=== PATIENT | male | born 1975 | race Caucasian/White ===

== ENCOUNTER 2021-03-11 08:57 | Emergency (ER) | payer MEDICAID, OTHER ==
[2021-03-11 09:42] LABS: BASOPHILS # (AUTO) 0.1 10^3/uL (0.0-0.1); EOSINOPHILS # (AUTO) 0.1 10^3/uL (0.0-0.7); EOSINOPHILS % (AUTO) 1.4 %; HCT - HEMATOCRIT 47.5 % (42.0-52.0); HGB - HEMOGLOBIN 15.8 g/dL (14.0-18.0); LYMPHOCYTES # (AUTO) 2.2 10^3/uL (1.5-3.5); LYMPHOCYTES % (AUTO) 23.6 %; MEAN CORPUSCULAR HGB CONC 33.3 g/dL (32.0-36.0); MEAN CORPUSCULAR VOLUME 87.2 fL (80.0-94.0); MEAN PLATELET VOLUME 11.8 fL (7.4-11.4); MONOCYTES # (AUTO) 0.5 10^3/uL (0.0-1.0); MONOCYTES % (AUTO) 5.8 %; NEUTROPHILS # (AUTO) 6.3 10^3/uL (1.5-6.6); PLT - PLATELET COUNT 361 10^3/uL (130-450); RED BLOOD COUNT 5.45 10^6/uL (4.70-6.10); RED CELL DISTRIBUTION WIDTH 14.2 % (12.0-15.0); WHITE BLOOD COUNT 9.3 x10^3/uL (4.8-10.8)
[2021-03-11 09:47] LABS: BILIRUBIN,URINE NEGATIVE (NEGATIVE); GLUCOSE, URINE (UA) NEGATIVE (NEGATIVE); KETONES,URINE (UA) 40 mg/dL (NEGATIVE); LEUKOCYTE ESTERASE, URINE NEGATIVE (NEGATIVE); NITRITE,URINE NEGATIVE (NEGATIVE); OCCULT BLOOD,URINE NEGATIVE (NEGATIVE); PH,URINE 7.5 PH (5.0-7.5); PROTEIN,URINE NEGATIVE (NEGATIVE); UROBILINOGEN,URINE 0.2 (NORMAL) E.U./dL (NORMAL)
[2021-03-11 09:48] LABS: CLARITY,URINE CLEAR (CLEAR)
[2021-03-11 09:56] LABS: ALBUMIN 4.2 g/dL (3.2-5.5); ALBUMIN/GLOBULIN RATIO 1.2 (1.0-2.2); BILIRUBIN,TOTAL 1.1 mg/dL (0.2-1.0); CREATININE 0.8 mg/dL (0.6-1.2); POTASSIUM 3.1 mmol/L (3.5-5.0); TOTAL PROTEIN 7.7 g/dL (6.7-8.2)
--- NOTE | 2021-03-11 10:18 | ED Physician Documentation ---
PD HPI ABD PAIN - Stated complaint Stated Complaint: LUMP IN ABDOMEN - Chief complaint Chief Complaint: Abd Pain - History obtained from History obtained from: Patient - History of Present Illness Timing - onset: Yesterday Timing - duration: Days (Patient states he had felt fullness of his stomach with some bloating after eating a lot for Thanksgiving and the next day. He had an episode of several emesis with diarrhea 2 days ago. No subsequent vomiting. Crampy abdominal pain at the time which resolved. Subsequently noted a lump in abd.) Timing - details: Abrupt onset Quality: No: Aching, Sharp Location: Other (he did have general abd cramping and bloating for a day, that has since resolved.) Associated symptoms: Nausea, Vomiting (for just a day) Similar symptoms before: Has not had sx before (The lumpPancreatic tumor 6 years ago that was found incidental to a CT for appendicitis. The lump he is feeling now concerned him for recurrent tumor.) Recently seen: Clinic (He went to walk-in clinic today for concern certain of the lump feeling. He does not have any continued pain nausea or vomiting. Walk-in referred him here for further evaluation and possible imaging.) Review of Systems Constitutional: denies: Fever, Chills Nose: denies: Rhinorrhea / runny nose, Congestion Throat: denies: Sore throat Respiratory: denies: Cough GI: denies: Constipation, Hematemesis, Bloody / black stool Skin: denies: Rash, Lesions PD PAST MEDICAL HISTORY - Past Medical History Cardiovascular: Hypertension Respiratory: Sleep apnea - Past Surgical History Past Surgical History: Yes General: Appendectomy - Present Medications Home Medications: Ambulatory Orders Medication Instructions Recorded Confirmed Benazepril HCl 20 mg PO DAILY 02/22/15 02/22/15 - Allergies Allergies/Adverse Reactions: Allergies Allergy/AdvReac Type Severity Reaction Status Date / Time erythromycin base Allergy Unknown Unknown Verified 03/11/21 09:16 azithromycin [From Zithromax] Allergy Anaphylaxis Verified 03/11/21 09:16 amoxicillin AdvReac Rash Verified 03/11/21 09:16 erythromycin lactobionate * AdvReac Nausea Verified 03/11/21 09:16 [From Erythrocin] - Social History Does the pt smoke?: No Smoking Status: Never smoker Does the pt drink ETOH?: Yes Does the pt have substance abuse?: No - Immunizations Immunizations are current?: Yes PD ED PE NORMAL - Vitals Vital signs reviewed: Yes - General General: Alert and oriented X 3, No acute distress, Well developed/nourished - Cardiac Cardiac: RRR, No murmur - Respiratory Respiratory: Clear bilaterally - Abdomen Abdomen: Normal bowel sounds, Soft, Non distended, No organomegaly, Other (Localized approximately 3 cm rounded density in the deep soft tissue in the upper abdomen right of center. Nontender. Likely hernia.) - Male Male : Deferred - Rectal Rectal: Deferred - Back Back: No CVA TTP - Derm Derm: Normal color, Warm and dry Results - Vitals Vitals: Vital Signs - 24 hr 03/11/21 03/11/21 03/11/21 09:08 11:16 12:54 Temperature 36.6 C Heart Rate 74 88 80 Respiratory 16 17 18 Rate Blood Pressure 185/100 H 190/103 H 190/100 H O2 Saturation 97 99 99 Oxygen O2 Source Room air - Labs Labs: Laboratory Tests 03/11/21 03/11/21 03/11/21 09:23 09:36 09:36 WBC 9.3 RBC 5.45 Hgb 15.8 Hct 47.5 MCV 87.2 MCH 29.0 MCHC 33.3 RDW 14.2 Plt Count 361 MPV 11.8 H Neut # (Auto) 6.3 Lymph # (Auto) 2.2 [place] # (Auto) 0.5 Eos # (Auto) 0.1 Baso # (Auto) 0.1 Absolute Nucleated RBC 0.00 Nucleated RBC % 0.0 Sodium 138 Potassium 3.1 L Chloride 100 L Carbon Dioxide 26 Anion Gap 12.0 BUN 8 Creatinine 0.8 Estimated GFR (MDRD) 104 Glucose 184 H Calcium 9.0 Total Bilirubin 1.1 H AST 22 ALT 20 Alkaline Phosphatase 83 Total Protein 7.7 Albumin 4.2 Globulin 3.5 Albumin/Globulin Ratio 1.2 Lipase 20 L Urine Color YELLOW Urine Clarity CLEAR Urine pH 7.5 Ur Specific [place] 1.015 Urine Protein NEGATIVE Urine Glucose (UA) NEGATIVE Urine Ketones 40 H Urine Occult Blood NEGATIVE Urine Nitrite NEGATIVE Urine Bilirubin NEGATIVE Urine Urobilinogen 0.2 (NORMAL) Ur Leukocyte Esterase NEGATIVE Ur Microscopic Review NOT INDICATED Urine Culture Comments NOT INDICATED - Rads (name of study) abd/pelvic CT Radiology: Prelim report reviewed (Abdominal wall hernia fat-containing without any signs of bowel obstruction or strangulation. Located in the area of the lump. No other acute process.), See rad report PD MEDICAL DECISION MAKING - ED course Complexity details: reviewed results (CT abdomen confirmed the clinically likely diagnosis of a incisional hernia. No signs of incarceration or strangulation. I did not really attempt reduction as it was not bothering him. No signs of pancreatic or other organ tumors.), considered differential, d/w patient Departure - Departure Disposition: Home, Self Care Clinical Impression: Abdominal wall lump Incisional hernia Qualifiers: Obstruction and gangrene presence: without obstruction or gangrene Qualified Co de(s): K43.2 - Incisional hernia without obstruction or gangrene Condition: Stable Record reviewed to determine appropriate education?: Yes Follow-Up: ADY RICO MD [Primary Care Provider] - Kj Winston MD [Provider Admit Priv/Credential] - Comments: The radiology report confirms no signs of masses or other abnormality in the abdominal cavity and in particular the pancreas and liver area. They did see some small possible gallstones in the gallbladder but no signs of wall thickening or inflammation. The lump palpable in the upper abdomen is a small fat-containing hernia around the incision site. This does not need particular treatment unless its tender or causes nausea or episodes of vomiting. Otherwise Tylenol if it is slightly uncomfortable. You can follow-up with surgery to discuss it if it seems bothersome otherwise no acute treatment is needed. Discharge Date/Time: 03/11/21 12:54
[2021-03-11] MEDS ORDERED: IOVERSOL 320 100 ML VIAL IVP ONE ×2 (11:12→13:08)
--- NOTE | 2021-03-11 12:10 | CT Report ---
PROCEDURE: Abdomen/Pelvis W INDICATIONS: upper abd lump and tender CONTRAST: IV CONTRAST: Optiray 320 ml: 100 PO CONTRAST: *NO PO CONTRAST TECHNIQUE: After the administration of intravenous contrast, 5 mm thick sections acquired from the diaphragms to the symphysis. 5 mm thick coronal and sagittal reformats were acquired. For radiation dose reducti on, the following was used: automated exposure control, adjustment of mA and/or kV according to milton ent size. COMPARISON: None available. FINDINGS: Image quality: Excellent. ABDOMEN: Lung bases: There is a right lower lobe nodule measuring up to 0.4 cm on series 4 image 2. A small ca lcified granuloma is also demonstrated in the left lower lobe. There is mild dependent atelectasis bi laterally. Heart size is normal. Solid organs: There is diffuse hypoattenuation of the liver consistent with fatty infiltration. There are a few small dependent calcified gallstones in the region of the gallbladder neck without wall th ickening or pericholecystic fluid. Biliary system is non dilated. There are postsurgical changes cons istent with prior distal pancreatectomy with surgical clips in the distal pancreatic body. No peripan creatic fat stranding or fluid collections. No pancreatic duct dilatation. The spleen is surgically a bsent. There is a small subdiaphragmatic splenule measuring up to 2.4 x 1.1 cm. No adrenal nodules. K idneys demonstrate no hydronephrosis. Peritoneum and bowel: Small bowel loops demonstrate normal wall thickness and caliber. The appendix i s not discretely identified and likely surgically absent. There are surgical clips adjacent to the ce cum. The colon is nondistended throughout is course limiting evaluation but there is suggestion of mi ld wall thickening. No free fluid or air. Nodes and vessels: No retroperitoneal or mesenteric adenopathy by size criteria. Aorta and inferior vena cava are normal in size. Miscellaneous: There is a small right paracentral fat-containing ventral abdominal hernia within the upper abdomen. The fascial defect measures approximately 0.7 x 0.8 cm in dimension. This corresponds to the area of patient's palpable abnormality as noted by a cutaneous marker. PELVIS: Genitourinary: Bladder wall thickness is normal. Miscellaneous: No inguinal hernias or adenopathy. Bones: No suspicious bony lesions. No vertebral body compression fractures. IMPRESSION: 1. Small right paracentral fat-containing ventral abdominal hernia demonstrated in the area of palpab le abnormality. No evidence of bowel herniation. 2. Postsurgical changes demonstrated status post distal pancreatectomy and splenectomy. No peripancre atic fat stranding, free fluid, or loculated fluid collections in the surgical bed. No pancreatic kathy t dilatation. 3. Small subdiaphragmatic splenule in the left upper quadrant. 4. Nonspecific right lower lobe pulmonary nodule measuring up to 0.4 cm. Recommend comparison with pr ior outside studies if available. If outside studies are not available, recommend follow-up chest CT in 6 months to demonstrate stability. Reviewed by: Harjinder Murcia MD on 03/11/2021 12:08 PM PST Approved by: Harjinder Murcia MD on 03/11/2021 12:08 PM PST Station ID: [id number]
[2021-03-11 12:56] VITALS: BP 190/100
== END 2021-03-11 12:54 | disposition home or self-care (01) ==
LOC: ED 08:57
DX: K43.2 Incisional hernia without obstruction or gangrene (principal); R22.2 Localized swelling, mass and lump, trunk
CPT/HCPCS: 36415; 74177; 80053; 81003; 83690; 85025; 99282; 99284; Q9967; 81001; 87086

== ENCOUNTER 2022-07-03 13:07 | Outpatient (CLI) | payer OTHER ==
--- NOTE | 2022-07-03 15:31 | XRAY Report ---
PROCEDURE: Knee 2 View RT INDICATIONS: SPRAIN OF UNSPECIFIED SITE OF R KNEE TECHNIQUE: 2 views of the right knee were acquired. COMPARISON: None. FINDINGS: Bones: No acute fractures or dislocations. No suspicious bony lesions. There is nondisplaced tear ing of the medial and lateral femorotibial compartments with formation of small marginal osteophytes. Soft tissues: Small joint effusion. No suspicious soft tissue calcifications. IMPRESSION: 1.No acute osseous abnormality. If symptoms persist or there is continued clinical concern, further e valuation with MRI or CT may be helpful. 2.Small joint effusion. 3.Mild osteoarthrosis. Reviewed by: Harpreet Hackett MD on 07/03/2022 3:30 PM PDT Approved by: Harpreet Hackett MD on 07/03/2022 3:30 PM PDT Station ID: [id number]
== END 2022-07-03 13:08 | disposition home or self-care (01) ==
LOC: DI 13:07
PROVIDERS: ATTEND Family Medicine
DX: S83.91XA Sprain of unspecified site of right knee, initial encounter (principal); M25.461 Effusion, right knee; M17.11 Unilateral primary osteoarthritis, right knee

== ENCOUNTER → 2022-07-21 14:30 | Outpatient (CLI) | payer OTHER ==
--- NOTE | 2022-07-21 11:39 | XRAY Report ---
PROCEDURE: Knee 3 View RT INDICATIONS: RIGHT KNEE PAIN, BILAT AP, RIGHT PA TUNNEL, RT SUNRISE ONLY TECHNIQUE: 3 views of the right knee and one view of the left knee were acquired. COMPARISON: Right knee radiograph 07/03/2022 FINDINGS: Bones: No acute fractures or dislocations. No suspicious bony lesions. Mild narrowing of the medial femorotibial compartment joint spaces bilaterally with small marginal osteophytes. Lateral compartme nt joint spaces are maintained, but there is mild early marginal spurring. There is moderate narrowin g of the right anterior compartment joint space with marginal osteophytes. Soft tissues: No suspicious soft tissue calcifications or masses. IMPRESSION: Bilateral osteoarthrosis is most notable and moderate at the patellofemoral compartment. No acute oss eous abnormality. If symptoms persist or there is continued clinical concern, further evaluation with MRI or CT may be helpful. Reviewed by: Harpreet Hackett MD on 07/21/2022 11:37 AM PDT Approved by: Harpreet Hackett MD on 07/21/2022 11:37 AM PDT Station ID: [id number]
== END | disposition home or self-care (01) ==
LOC: DI.WOS 14:30
PROVIDERS: ATTEND Physician Assistant Surgical
DX: S83.91XD Sprain of unspecified site of right knee, subsequent encounter (principal); M17.11 Unilateral primary osteoarthritis, right knee

== ENCOUNTER 2022-08-12 13:16 | Outpatient (CLI) | payer OTHER ==
--- NOTE | 2022-08-12 16:01 | MRI Report ---
PROCEDURE: KNEE WO - RT INDICATIONS: SPRIAN OF RIGHT KNEE TECHNIQUE: Noncontrast sagittal PD fast spin echo and T2 fast spin echo with fat saturation, sagittal 3-D gradie nt sequence with fat saturation; coronal T1 spin echo and PD fast spin echo with fat saturation, and axial PD fast spin echo with fat saturation through the knee. COMPARISON: None. FINDINGS: Image quality: Excellent. Menisci: The medial and lateral menisci demonstrate normal morphology and internal signal. The meni scal root ligaments appear intact. Cruciate ligaments: The anterior and posterior cruciate ligaments appear intact. Medial structures: The medial collateral ligament appears intact. Visualized portions of the pes ans erinus tendons appear normal. No abnormal bursal fluid. Lateral structures: The lateral collateral ligament, long and short heads of the biceps femoris tend on appear intact. The popliteus tendon appears . Iliotibial band appears normal. Anterior structures: Mild T2 signal elevation within the quadriceps and patellar tendons at the peña lar insertion sites. Superimposed multifocal partial-thickness tears of the quadriceps tendon at the patellar insertion site. Patellar alignment is normal. No femoral trochlear dysplasia or ventral tro chlear prominence. No edema in the infrapatellar fat pad. Bones and cartilage: No bone marrow contusions or fractures. Mild tricomponent foraminal periareolar osteophyte formation, mild articular cartilage loss diffusely overlies the weightbearing aspects of the medial femoral condyle and medial tibial plateau. There is a 3 mm diameter region of high-grade a rticular cartilage loss overlying the posterior weightbearing aspect of the lateral femoral condyle. Moderate articular cartilage loss overlies the medial and lateral patellar facets. Joint space: There is a small knee joint effusion and a trace Mina's cyst. Normal appearing synovi al plicae are incidentally noted. IMPRESSION: 1. Tricompartmental osteoarthritis with associated articular cartilage loss. 2. No internal derangement. 3. Quadriceps and patellar tendinopathy. Partial thickness tears of the quadriceps tendon. 4. Knee joint effusion. Reviewed by: Junaid Boyce MD on 08/12/2022 4:00 PM PDT Approved by: Junaid Boyce MD on 08/12/2022 4:00 PM PDT Station ID: [id number]
== END 2022-08-12 13:17 | disposition home or self-care (01) ==
LOC: DI 13:16
PROVIDERS: ATTEND Physician Assistant Surgical
DX: S83.91XA Sprain of unspecified site of right knee, initial encounter (principal); M17.11 Unilateral primary osteoarthritis, right knee; M67.863 Other specified disorders of tendon, right knee; S76.121A Laceration of right quadriceps muscle, fascia and tendon, initial encounter

== ENCOUNTER 2023-05-27 13:30 | Outpatient (CLI) | payer OTHER ==
--- NOTE | 2023-05-27 17:20 | XRAY Report ---
PROCEDURE: Knee 4 View RT INDICATIONS: RIGHT KNEE PAIN TECHNIQUE: 4 views of the knee(s) were acquired. COMPARISON: 07/21/2022. FINDINGS: Bones: No acute fractures or dislocations. No suspicious bony lesions. Redemonstration of moderat e tricompartmental osteoarthrosis of the right knee. Findings are again most pronounced in the medial femorotibial and patellofemoral compartments. Soft tissues: Small knee joint effusion. No suspicious soft tissue calcifications or masses. IMPRESSION: No acute bony abnormality. Moderate tricompartmental osteoarthrosis of the right knee. Small joint effusion. Reviewed by: Abel Diaz MD on 05/27/2023 5:19 PM PST Approved by: Abel Diaz MD on 05/27/2023 5:19 PM PST Station ID: [id number]
== END 2023-05-27 23:59 | disposition home or self-care (01) ==
LOC: DI.WOS 13:30
PROVIDERS: ATTEND Physician Assistant Surgical
DX: S83.91XD Sprain of unspecified site of right knee, subsequent encounter (principal); M17.11 Unilateral primary osteoarthritis, right knee; M25.461 Effusion, right knee

== ENCOUNTER 2024-12-08 10:45 | Observation (INO) ==
[~2024-12-08 10:45] MED LIST: BUPIVACAINE 0.25% PF 30 ML VIAL ONE
[2024-12-08] MEDS: LACTATED RINGERS 1,000 ML IV PRN (11:14)
[2024-12-08] MEDS ORDERED: fentaNYL 100 MCG/2 ML VIAL IVP PRN (11:37)
[2024-12-08] MEDS ORDERED: MORPHINE 2 MG/ML CARPUJECT IVP PRN (11:37)
[2024-12-08] MEDS ORDERED: ONDANSETRON 4 MG/2 ML VIAL IVP PRN ×2 (11:37→15:46)
[2024-12-08] MEDS ORDERED: METOCLOPRAMIDE 10 MG/2 ML VIAL IVP PRN (11:37)
[2024-12-08] MEDS ORDERED: NALOXONE 0.4 MG/ML VIAL IVP PRN (11:37)
[2024-12-08] MEDS ORDERED: ATROPINE ABBOJECT 1 MG/10 ML SYRINGE IVP PRN (11:37)
[2024-12-08] MEDS ORDERED: ePHEDrine 50 MG/ML VIAL IVP PRN (11:37)
--- NOTE | 2024-12-08 11:37 | Preop H&P Attestation ---
Preop H&P Attestation Preop History & Physical Preop H&P Date: 11/09/24 History & Physical Reviewed and patient examined today.: No change -: pt seen and evaluated. no interval change. plan incisional hernia repair. parq held and consent obtained
--- NOTE | 2024-12-08 11:37 | ANESTHESIA PROCEDURE NOTE ---
Pre-Anesthesia VS, & Labs Diagnosis Surgical Diagnosis:: ventral hernias Procedure Procedure: laparoscopic ventral hernia repair Vitals Vital Signs: Temp Pulse Resp BP Pulse Ox 36.9 C 68 16 149/90 H 95 12/08/24 11:10 12/08/24 11:18 12/08/24 11:18 12/08/24 11:18 12/08/24 11:10 Meds/Allgy Home Medications Ambulatory Orders Medication Instructions Recorded Confirmed amlodipine 2.5 mg tablet 2.5 mg PO BID 11/09/2411/09 fluoxetine 10 mg capsule 10 mg PO QDAY 11/09/2411/09 omeprazole 40 mg capsule,delayed 40 mg PO QDAY 5 11/09/24 release valsartan 40 mg tablet 40 mg PO QDAY 11/09/2411/09 Allergies Allergies Allergy/AdvReac Type Severity Reaction Status Date / Time erythromycin base Allergy Unknown Unknown Verified 11/09/24 10:53 azithromycin (From Zithromax) Allergy Anaphylaxis Verified 11/09/24 10:53 amoxicillin AdvReac Rash Verified 11/09/24 10:53 erythromycin lactobionate * AdvReac Nausea Verified 11/09/24 10:53 (From Erythrocin) REPLACED BY [facility] Medical History Medical History Hypertension Pilonidal cyst Surgical History Surgical History (Updated 12/08/24 @ 11:34 by Ara Peters CRNA) History of resection of pancreas History of laparoscopic appendectomy History of ankle surgery History of nasal surgery Social History Social History Smoking Status: Former smoker Frequency: Occasional Anesthesia Exam (Expanded) Exam General: Alert, Oriented x3 and Cooperative Dental: WNL Mouth Opening: Greater than 4 Fingerbreadths Neck Mobility: Normal Mallampati classification: II Thyromental Distance: greater than 6 cm Respiratory: Lungs clear Cardiovascular: Regular rate Exam Exam Vital Signs: Vital Signs x48h Temp Pulse Resp BP Pulse Ox 12/08/24 11:18 68 16 149/90 H 12/08/24 11:10 36.9 C 74 16 166/95 H 95 12/08/24 10:59 36.9 C 82 14 191/110 H 95 Plan Problem List (1) History of resection of pancreas: (2) History of laparoscopic appendectomy: (3) History of ankle surgery: (4) History of nasal surgery: (5) Hypertension: (6) Pilonidal cyst: Plan Anesthesia Type: General Consent for Procedure(s) Verified and Reviewed: Yes Code Status: Attempt Resuscitation ASA Classification ASA classification: 2-Mild systemic disease Is this case an emergency?: No
[2024-12-08] MEDS ORDERED: SCOPOLAMINE PATCH TOP ONE (11:43)
[2024-12-08] MEDS: SCOPOLAMINE PATCH TOP SCH (11:44)
[2024-12-08] MEDS ORDERED: PROPOFOL 200 MG/20 ML VIAL IVP ONE (11:49)
[2024-12-08] MEDS ORDERED: ROCURONIUM 50 MG/5 ML VIAL ONE ×3 (11:49→13:10)
[2024-12-08] MEDS ORDERED: MIDAZOLAM 2 MG/2 ML VIAL ONE (11:52)
[2024-12-08] MEDS ORDERED: fentaNYL 100 MCG/2 ML VIAL ONE ×3 (11:52→15:45)
[2024-12-08] MEDS ORDERED: LACTATED RINGERS 1,000 ML IV SCH (12:00)
[2024-12-08] MEDS: ceFAZolin (3G) 3 GM in SODIUM CHLORIDE 0.9% MINIBAG 100 ML IV ONE (12:00)
[2024-12-08] MEDS ORDERED: METOCLOPRAMIDE 10 MG/2 ML VIAL ONE (12:11)
[2024-12-08] MEDS ORDERED: ONDANSETRON 4 MG/2 ML VIAL ONE (12:11)
[2024-12-08] MEDS ORDERED: DEXAMETHASONE 4 MG/ML VIAL ONE (12:11)
[2024-12-08] MEDS ORDERED: SEVOFLURANE 250 ML LIQUID INH ONE (12:47)
[2024-12-08] MEDS ORDERED: ACETAMINOPHEN 1,000 MG/100 ML 1,000 MG/100 ML BAG IV ONE (13:14)
[2024-12-08] MEDS ORDERED: LIDOCAINE-PF 2% 10 ML AMP SUBQ ONE (13:18)
[2024-12-08] MEDS ORDERED: MAGNESIUM SULFATE 1 GM/2 ML VIAL ONE (13:29)
[2024-12-08] MEDS: ACETAMINOPHEN 325 MG TABLET PO PRN (13:30)
[2024-12-08] MEDS ORDERED: DEXMEDETOMIDINE 200 MCG/2 ML VIAL ONE (13:34)
[2024-12-08] MEDS ORDERED: BUPIVACAINE 0.25% PF 10 ML VIAL ONE (13:45)
[2024-12-08] MEDS ORDERED: SUGAMMADEX 200 MG/2 ML VIAL IVP ONE (15:07)
[2024-12-08] MEDS ORDERED: KETOROLAC 30 MG/ML VIAL ONE (15:21)
[2024-12-08] MEDS ORDERED: SODIUM CHLORIDE FLUSH 0.9% 10 ML SYRINGE IVP PRN (15:46)
[2024-12-08] MEDS ORDERED: ONDANSETRON ODT 4 MG TABLET TL PRN (15:46)
[2024-12-08] MEDS ORDERED: HYDROmorphone 1 MG/ML CARPUJECT ONE ×2 (16:08→16:36)
--- NOTE | 2024-12-08 16:08 | OPERATIVE REPORT ---
Operative Report General Procedure Data: Operation Date: 12/08/24 12:00 Proposed Procedures p Laparoscopic Repair WITH MESH, ABDOMINAL WALL HERNIAS(Not Applicable) - Nicola Mccann MD Actual Procedures p Laparoscopic converted to open incisional hernia repair with mesh, lysis of adhesions(Not Applicable) - Nicola Mccann MD Pre-Op Diagnosis: painful abdominal wall hernias Anesthesia Type General Case Staff Anesthesia Provider: Ara Peters Case Times Procedure Start: 12/08/24 12:36 Procedure End: 12/08/24 15:44 Time out: 12/08/24 12:36 Implants MESH [id number] Pre-Op Diagnosis: incarcerated incisional hernia Post Op Diagnosis: incarcerated incisional hernia Procedure Note Drain/Tube Type: Other (none) Pathology: fat and skin not sent Indications: painful incisional hernia Findings: 3 cm umbilical hernia and 2 3 cm incarcerated incsional hernias all by 4 to 6 cm. very large diastasis and thin fascia which was partially excised. extensive adhesions including bowel to abdominal wall Complications: none Other Other Information/Narrative: The patient was prepped identified brought to the operating room and placed in s upine position. Sequential compression devices were placed. General endotracheal anesthesia was induced. He was prepped and draped in a sterile fashion and given preoperative antibiotics. A 2-1/2 cm incision was made in the far lateral left upper quadrant. Dissection proceeded down to the fascia. Fascia was incised and lifted upwards and abdomen entered with a Veress needle. CO2 was insufflated to a pressure of 15. An 11 mm trocar with 30 degree scope was placed under vision. He had extensive omental adhesions to the abdominal wall. In addition he had small bowel adherent just cephalad of the umbilicus. He had colon densely adherent or adjacent to the midline upper abdomen. Given the extensive adhesions and concern for possible bowel injury an open repair was performed. He had a wide upper midline scar. This was excised. Dissection proceeded down to the fascia. Fascia was opened in a location where bowel was not present. Adhesions were carefully taken down with a combination of blunt dissection and sharp dissection and cautery. Bowel was carefully released from the abdominal wall without serosal tear or injury. His abdomen was previously closed with a combination of [id number] and Prolene sutures and likely dissolving retention sutures. He had large holes in his fascia with incarcerated omentum lateral of midline. Fascia was very thin in the middle. T his thin area of fascia was removed back to a stronger fashion and fascia without holes. Subcutaneous tissue was mobilized back from the fascial defect edge by approximately 3 cm in all directions. Approximately 2-1/2 inch wide by 8 inch tall separate mesh was placed intra-abdominal and secured with a total of 40 5 interrupted 0 Prolene sutures. Sutures were placed circumferentially and also in midline. Counts were correct. No apparent complications. Subcutaneous tissue was closed with interrupted 2-0 Vicryl suture.. Interrupted subdermal 3- 0 Vicryl sutures were then placed. Skin was closed with a running running 4-0 Monocryl subcuticular suture. Fascia at the trocar site was previously closed with a [id number] 0 Vicryl suture and skin closed with buried erupted 4-0 Monocryl. Dressings were applied. Tolerated the procedure very well was awakened and brought to recovery in good condition.
[2024-12-08] MEDS: HYDROmorphone 0.5 MG/0.5 ML SYRINGE IVP PRN ×2 (16:10→19:33)
[2024-12-08 17:12] LABS: ESTIMATED AVERAGE GLUCOSE 180 mg/dL (70-100); HEMOGLOBIN A1c% 7.9 % (4.27-6.07)
[2024-12-08] MEDS: DEXTROSE 5%-0.45% NACL 1,000 ML IV SCH (17:33)
[2024-12-08] MEDS: INSULIN LISPRO 300 UNIT/3 ML PEN SUBQ SCH (17:35)
[2024-12-08] MEDS: SODIUM CHLORIDE FLUSH 0.9% 10 ML SYRINGE IVP SCH (17:37)
[2024-12-08] MEDS: KETOROLAC 15 MG/ML VIAL IVP SCH (21:25)
[2024-12-08] MEDS: HEPARIN 5,000 UNIT/ML VIAL SUBQ SCH (21:52)
--- NOTE | 2024-12-08 22:50 | ANESTHESIA POST OP EVALUATION ---
Anesthesia Post Eval Post Anesthesia Eval Vitals: Last Vital Signs Temp 37.0 C 12/08/24 21:53 Pulse 72 12/08/24 21:53 Resp 12 12/08/24 21:53 BP 122/64 12/08/24 21:53 Pulse Ox 95 12/08/24 21:53 CV Function Including HR & BP: Stable Pain Control: Satisfactory Nausea & Vomiting: Negative Mental Status: Baseline Respiratory Status: Airway Patent Hydration Status: Satisfactory Anesthesia Complications: None
[2024-12-09] MEDS: PANTOPRAZOLE 40 MG TABLET PO SCH (06:22)
[2024-12-09] MEDS: FLUoxetine 10 MG CAPSULE PO SCH (08:06)
--- NOTE | 2024-12-09 09:07 | PHARMACY PROGRESS NOTE ---
Best Possible Medication History Admit Date and Time: Home Medications Medication Instructions Recorded Confirmed Type amlodipine 2.5 mg tablet 2.5 mg PO BID 11/09/2412/09 History fluoxetine 10 mg capsule 10 mg PO DAILY 11/09/2411/12 History omeprazole 40 mg capsule,delayed 40 mg PO QDAC 5 12/09/24 History release valsartan 40 mg tablet 40 mg PO DAILY 11/09/2411/12 History Processed by: Pharmacy Medications reviewed in ED?: No Medication History completed: Yes Patient Interview: Completed Secondary Source(s): Pharmacy records and Insurance records [facility] Statement: As the person ultimately responsible for medication therapy, providers are able to order a medication from an existing home medication list in [facility] via the "Reconcile Routine" prior to Confirmation of that medication by sales and support center agent. Such practice is discouraged except when the physician, in their clinical judgment, deems that a medical need exists for a medication without regard to previous use.
--- NOTE | 2024-12-09 10:00 | PROVIDER PROGRESS NOTE ---
Progress Note Progress Note Progress Note: General Surgery Progress Note Hospital Day # 2 - Ventral hernia POD # 1, Open VHR - mesh Code Status: Full ASSESSMENT: 1) No immediate post-op issues PLAN: 1) Ambulate 2) ADAT 3) IV to saline lock 4) Multimodality pain control 5) Discharge home in a couple days <><><><><> PERTINENT INTERVAL ISSUES: None S: Feels good; Pain under control; Not OOB yet; No flatus yet OBJECTIVE: I/O: 5389/1425 VS: BP 126/69; P 75; RR 18; T 36.6 EXAMINATION: MENTAL STATUS: AAO; Comfortable EYES: Pupils equal, round and reactive to light, sclera anicteric, NECK: No crepitus, lymphadenopathy, or thyromegaly LUNGS: Clear to auscultation without wheezing; No use of accessory muscles to breathe CARDIOVASCULAR: Heart-NSR without murmurs; ABD: Soft, non-distended; Midline dressing and pleft lort site dressing dry; +BS SKIN: Anicteric; No rashes, lesions, ulcerations LABS: None pending CULTURES: None pending IMAGING: None pending ANTIMICROBIALS: Prophylactic completed PAIN CONTROL: Dilaudid IV prn, Oxycodone PO prn, Acetaminophen VTEP: Chemical: Heparin, 5,000 units, SQ, Q 12 hrs Mechanical: WILLY Love MD, FACS General Surgery Service
[2024-12-09] MEDS: oxyCODONE 5 MG TABLET PO PRN (16:28)
[2024-12-09] MEDS: INSULIN LISPRO 300 UNIT/3 ML PEN SUBQ SCH (20:55)
--- NOTE | 2024-12-10 08:19 | PROVIDER PROGRESS NOTE ---
Progress Note Progress Note Progress Note: General Surgery Progress Note Hospital Day # 3 - Ventral hernia POD # 2, Open VHR - mesh Code Status: Full ASSESSMENT: 1) Progressing well PLAN: 1) Ambulate 2) Abdominal binder 3) Remove IV 4) Miralax prn 5) Consider discharge later today or tomorrow <><><><><> PERTINENT INTERVAL ISSUES: None S: Feels good; Pain under control with oral meds - Oxycodone works better than IV Dilaudid; No BM yet; + Flatus; + Ambulation OBJECTIVE: I/O: 1788/2724 VS: BP 139/77; P 77; RR 20; T 36.6 EXAMINATION: MENTAL STATUS: AAO; Comfortable EYES: Pupils equal, round and reactive to light, sclera anicteric, LUNGS: Clear to auscultation without wheezing; No use of accessory muscles to breathe CARDIOVASCULAR: Heart-NSR without murmurs; ABD: Soft, non-distended; Midline and left port site dressing removed due to staining; No evidence of erythema or purulent drainage. Wounds redressed with sterile gauze SKIN: Anicteric; No rashes, lesions, ulcerations LABS: None pending CULTURES: None pending IMAGING: None pending ANTIMICROBIALS: Prophylactic completed PAIN CONTROL: Oxycodone PO prn, Acetaminophen VTEP: Chemical: Heparin, 5,000 units, SQ, Q 12 hrs Mechanical: WILLY Love MD, FACS General Surgery Service
[2024-12-10 20:27] VITALS: O2SAT 94
--- NOTE | 2024-12-11 08:16 | PROVIDER PROGRESS NOTE ---
Progress Note Progress Note Progress Note: General Surgery Progress Note Hospital Day # 4 - Ventral hernia POD # 3, Open VHR - mesh Code Status: Full ASSESSMENT: 1) Progressing well and ready for discharge PLAN: 1) Discharge to home with abdominal binder 2) Miralax today 3) FU PCP for hypergycemia evaluation 4) FU [facility] in 7-10 days <><><><><> PERTINENT INTERVAL ISSUES: None S: Feels good; Pain under control with oral meds - Abdominal binder helps; Passing flatus but no BM yet; Eating a general diet OBJECTIVE: VS: BP 143/92; P 70; RR 17; T 36.6 EXAMINATION: MENTAL STATUS: AAO; Comfortable EYES: Pupils equal, round and reactive to light, sclera anicteric, LUNGS: Clear to auscultation without wheezing; No use of accessory muscles to breathe CARDIOVASCULAR: Heart-NSR without murmurs; ABD: Soft, non-distended; Midline and left port site wounds clean and dry. Wounds redressed with sterile gauze SKIN: Anicteric; No rashes, lesions, ulcerations LABS: None pending CULTURES: None pending IMAGING: None pending ANTIMICROBIALS: Prophylactic completed PAIN CONTROL: Oxycodone PO prn, Acetaminophen VTEP: Chemical: Heparin, 5,000 units, SQ, Q 12 hrs Mechanical: SCD Chang Love MD, FACS General Surgery Service
[2024-12-11 11:43] VITALS: BP 161/89; TEMP 97.7
== END 2024-12-11 11:30 | disposition home or self-care (01) ==
LOC: MS2 10:45 → SDS 10:45 → MS2 15:46
PROVIDERS: ADMIT Surgery; ATTEND Surgery
DX: K42.9 Umbilical hernia without obstruction or gangrene; R73.9 Hyperglycemia, unspecified; I10 Essential (primary) hypertension; K66.0 Peritoneal adhesions (postprocedural) (postinfection); K43.0 Incisional hernia with obstruction, without gangrene